=== PATIENT | male | born 1985 | race Caucasian/White ===

== ENCOUNTER 2018-10-25 10:04 | Emergency (ER) | payer OTHER ==
[2018-10-25] MEDS ORDERED: DIAZEPAM 5 MG TABLET ONE (10:45)
[2018-10-25] MEDS ORDERED: FENTANYL CITR 100 MCG/2 ML ONE (14:09)
[2018-10-25] MEDS ORDERED: HYDROCODONE/APAP 10/325 TAB ONE (16:09)
--- NOTE | 2018-10-25 16:13 | RAD REPORT ---
EXAM DESCRIPTION: MRI - Lumbar Spine Wo Con - 10/25/2018 3:32 pm CLINICAL HISTORY: Ataxia and numbness COMPARISON: 2016 x-ray TECHNIQUE: Sagittal T1, T2 and STIR weighted sequences were obtained. Axial T1 and T2 sequences were obtained through the lumbar disc levels. FINDINGS: L1-2 and L2-3 are unremarkable Disc desiccation L3-4. Small disc bulge. Annular fissure. Thecal sac measures 9 millimeters. Neural f oramina patent Disc desiccation and bulge L4-5 with annular fissure. Mild ligamentum flavum and facet hypertrophy. T hecal sac measures 9 millimeters. Mild narrowing of the neural foramina bilaterally 10 x 7 x 13 millimeter (cc by AP by trans) left paracentral disc herniation L5-S1 abuts the right S1 nerve root No significant abnormal signal within the bones IMPRESSION: Moderate right paracentral disc herniation L5-S1 Spondylosis L3-4 and L4-5 resulting in mild central spinal stenosis
--- NOTE | 2018-10-25 17:21 | EDPHYS ---
Physician Documentation [facility] Name: Pj Avila Age: 32 yrs Sex: Male : 1985 Arrival Date: 10/25/2018 Time: 10:07 Bed 14 Private MD: None, None ED Physician Cirilo Michel HPI: 10/25 15:52 This 32 yrs old Male presents to ER via Ambulatory with complaints of Back snw Pain. 15:52 The patient presents with pain that is acute, and decreased range of motion, and spasm. 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 - Social history:: Smoking status: Patient/guardian denies using tobacco. - Ebola Screening: : Patient negative for fever greater than or equal to 101.5 degrees Fahrenheit, and additional compatible Ebola Virus Disease symptoms Patient denies exposure to infectious person Patient denies travel to an Ebola-affected area in the 21 days before illness onset No symptoms or risks identified at this time. ROS: 10:32 Constitutional: Negative for fever, chills, and weight loss, Eyes: Negative for injury, snw pain, redness, and discharge, ENT: Negative for injury, pain, and discharge, Neck: Negative for injury, pain, and swelling, Cardiovascular: Negative for chest pain, palpitations, and edema, Respiratory: Negative for shortness of breath, cough, wheezing, and pleuritic chest pain, Abdomen/GI: Negative for abdominal pain, nausea, vomiting, diarrhea, and constipation, Back: Negative for injury, + severe pain. Exam: 10:22 Constitutional: This is a well developed, well nourished patient who is awake, alert, snw and in no acute distress. Head/Face: Normocephalic, atraumatic. Eyes: Pupils equal round and reactive to light, extra-ocular motions intact. Lids and lashes normal. Conjunctiva and sclera are non-icteric and not injected. Cornea within normal limits. Periorbital areas with no swelling, redness, or edema. ENT: Nares patent. No nasal discharge, no septal abnormalities noted. Tympanic membranes are normal and external auditory canals are clear. Oropharynx with no redness, swelling, or masses, exudates, or evidence of obstruction, uvula midline. Mucous membranes moist. Neck: Trachea midline, no thyromegaly or masses palpated, and no cervical lymphadenopathy. Supple, full range of motion without nuchal rigidity, or vertebral point tenderness. No Meningismus. Chest/axilla: Normal chest wall appearance and motion. Nontender with no deformity. No lesions are appreciated. Cardiovascular: Regular rate and rhythm with a normal S1 and S2. No gallops, murmurs, or rubs. Normal PMI, no JVD. No pulse deficits. Respiratory: Lungs have equal breath sounds bilaterally, clear to auscultation and percussion. No rales, rhonchi or wheezes noted. No increased work of breathing, no retractions or nasal flaring. Abdomen/GI: Soft, non-tender, with normal bowel sounds. No distension or tympany. No guarding or rebound. No evidence of tenderness throughout. Skin: Warm, dry with normal turgor. Normal color with no rashes, no lesions, and no evidence of cellulitis. Neuro: Awake and alert, GCS 15, oriented to person, place, time, and situation. Cranial nerves II-XII grossly intact. Motor strength 5/5 in all extremities. Sensory grossly intact. Cerebellar exam normal. Normal gait. Psych: Awake, alert, with orientation to person, place and time. Behavior, mood, and affect are within normal limits. 10:22 Back: pain, that is moderate, that is severe, ROM is painful, with all movement, decreased, normal spinal alignment noted, CVA tenderness, is absent, muscle spasm, is appreciated in the low back area, radiation to bilateral lower extremities. Vital Signs: 10:15 Pulse 96; Resp 17; Temp 97.8; Pulse Ox 100% on R/A; Weight 102.06 kg; Height 6 ft. 0 sg in. (182.88 cm); Pain 7/10; 10:15 BP 138 / 89; sg 11:54 BP 124 / 67; Pulse 70; Resp 17; Pulse Ox 98% on R/A; sg 10:15 Body Mass Index 30.52 (102.06 kg, 182.88 cm) sg MDM: 10:22 Patient medically screened. snw 13:57 Data reviewed: vital signs, nurses notes. Data interpreted: Pulse oximetry: on room air snw is 98 %. Interpretation: normal. Counseling: I had a detailed discussion with the patient and/or guardian regarding: the historical points, exam findings, and any diagnostic results supporting the discharge/admit diagnosis, radiology results. Awaiting: MRI/results. 10/25 10:22 Order name: MRI Lumbar Spine wo Con; Complete Time: 16:45 snw Administered Medications: 10:34 Drug: Valium 10 mg Route: PO; sg 11:50 Follow up: Response: No adverse reaction; No adverse reaction, feeling better sg 14:00 Drug: fentaNYL (PF) 50 mcg Route: IM; Site: left deltoid; sg 15:56 Drug: Jeffrey 10 mg-325 mg 1 tabs Route: PO; sg 17:23 Drug: Decadron 10 mg Route: IM; Site: left ventrogluteal; sg Disposition: 10/26 07:32 Co-signature as Attending Physician, Cirilo Michel MD I agree with the assessment and kdr plan of care. Disposition: 10/25/18 17:19 Discharged to Home. Impression: Lumbago with sciatica, unspecified side, Intervertebral disc disorders with radiculopathy, lumbosacral region. - Condition is Stable. - Discharge Instructions: Herniated Disk, Lumbosacral Radiculopathy, Sciatica, Radicular Pain. - Prescriptions for Tylenol- Codeine #3 300-30 mg Oral Tablet - take 2 tablets by ORAL route every 6 hours As needed; 20 tablet. Soma 350 mg Oral Tablet - take 1 tablet by ORAL route every 6 hours As needed; 12 tablet. - Medication Reconciliation Form, Thank You Letter, Antibiotic Education, Prescription Opioid Use form. - Follow up: Private Physician; When: 1 - 2 days; Reason: Recheck today's complaints, Continuance of care, Re-evaluation by your physician. Follow up: Emergency Department; When: As needed; Reason: Worsening of condition. Follow up: Jean-Pierre Reynaga MD; When: 1 - 2 days; Reason: Recheck today's complaints, Continuance of care. Signatures: Dispatcher [employer] EDFreddy Nolasco RN Cirilo Harman MD MD kdr Therrien, Shelly, WATER POLLUTION CONTROL INSPECTOR-C WATER POLLUTION CONTROL INSPECTOR-Csnw Corrections: (The following items were deleted from the chart) 10/25 17:46 17:19 10/25/2018 17:19 Discharged to Home. Impression: Lumbago with sciatica, sg unspecified side; Intervertebral disc disorders with radiculopathy, lumbosacral region. Condition is Stable. Forms are Medication Reconciliation Form, Thank You Letter, Antibiotic Education, Prescription Opioid Use. Follow up: Private Physician; When: 1 - 2 days; Reason: Recheck today's complaints, Continuance of care, Re-evaluation by your physician. Follow up: Emergency Department; When: As needed; Reason: Worsening of condition. Follow up: Jean-Pierre Reynaga; When: 1 - 2 days; Reason: Recheck today's complaints, Continuance of care. snw
--- NOTE | 2018-10-25 17:21 | ER ---
Nurse's Notes [facility] Name: Pj Avila Age: 32 yrs Sex: Male : 1985 Arrival Date: 10/25/2018 Time: 10:07 Bed 14 Private MD: None, None Diagnosis: Lumbago with sciatica, unspecified side;Intervertebral disc disorders with radiculopathy, lumbosacral region Presentation: 10/25 10:16 Presenting complaint: Patient states: Lexi been on my boat the last 3-4 days, reports sg being seen by the PCP and given a muscle relaxer, took one dose last night, no relief just made me sleepy. Transition of care: patient was not received from another setting of care. Onset of symptoms was October 25, 2018. Risk Assessment: Do you want to hurt yourself or someone else? Patient reports no desire to harm self or others. Initial Sepsis Screen: Does the patient meet any 2 criteria? No. Patient's initial sepsis screen is negative. Does the patient have a suspected source of infection? No. Patient's initial sepsis screen is negative. Care prior to arrival: None. 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 - Social history:: Smoking status: Patient/guardian denies using tobacco. - Ebola Screening: : Patient negative for fever greater than or equal to 101.5 degrees Fahrenheit, and additional compatible Ebola Virus Disease symptoms Patient denies exposure to infectious person Patient denies travel to an Ebola-affected area in the 21 days before illness onset No symptoms or risks identified at this time. Screenin:18 Abuse screen: Denies threats or abuse. Denies injuries from another. Nutritional sg screening: No deficits noted. Tuberculosis screening: No symptoms or risk factors identified. Never had TB. Fall Risk None identified. Assessment: 10:18 General: Appears in no apparent distress. well groomed, well developed, well nourished, sg Behavior is calm, cooperative, appropriate for age. Pain: Complains of pain in low back area Quality of pain is described as aching. Neuro: Level of Consciousness is awake, alert, obeys commands, Oriented to person, place, time, situation, Patent Clerk are equal bilaterally Moves all extremities. Full function Gait is unsteady, reports has to walk in a crouching and hunched over position for comfort. Speech is normal, Facial symmetry appears normal. Cardiovascular: Capillary refill is brisk in bilateral fingers Patient's skin is warm and dry. Chest pain is denied. Respiratory: Airway is patent Respiratory effort is even, unlabored, Respiratory pattern is regular, symmetrical. GI: Abdomen is round non-distended. : No signs and/or symptoms were reported regarding the genitourinary system. EENT: No signs and/or symptoms were reported regarding the EENT system. Derm: Skin is pink, warm \T\ dry. Musculoskeletal: Circulation, motion, and sensation intact. Range of motion: intact in all extremities, Reports pain in low back area. Vital Signs: 10:15 Pulse 96; Resp 17; Temp 97.8; Pulse Ox 100% on R/A; Weight 102.06 kg; Height 6 ft. 0 sg in. (182.88 cm); Pain 7/10; 10:15 BP 138 / 89; sg 11:54 BP 124 / 67; Pulse 70; Resp 17; Pulse Ox 98% on R/A; sg 10:15 Body Mass Index 30.52 (102.06 kg, 182.88 cm) sg ED Course: 10:07 Patient arrived in ED. dp 10:08 None, None is Private Physician. dp 10:15 [facility] Morat[facility]-C [facility] snw 10:15 Cirilo Michel MD is Attending Physician. snw 10:15 Freddy Taylor, ERNESTO is Primary Nurse. sg 10:15 Arm band placed on. sg 10:17 Triage completed. sg 10:18 No provider procedures requiring assistance completed. sg 11:53 Awaiting: MRI. sg 14:44 Patient moved to MRI via wheelchair. sg 15:15 MRI completed. Patient tolerated well. Patient moved back from MRI. em2 16:01 MRI Lumbar Spine wo Con In Process Unspecified. EDMS 17:18 Jean-Pierre Reynaga MD is Referral Physician. snw Administered Medications: 10:34 Drug: Valium 10 mg Route: PO; sg 11:50 Follow up: Response: No adverse reaction; No adverse reaction, feeling better sg 14:00 Drug: fentaNYL (PF) 50 mcg Route: IM; Site: left deltoid; sg 15:56 Drug: Columbus 10 mg-325 mg 1 tabs Route: PO; sg 17:23 Drug: Decadron 10 mg Route: IM; Site: left ventrogluteal; sg Outcome: 17:19 Discharge ordered by . snw 17:46 Patient left the ED. sg Signatures: Dispatcher [employer] EDMS Freddy Taylor RN RN sg Judy Morataya, SOCIAL SCIENCE MANAGER-C SOCIAL SCIENCE MANAGER-Csnw Allen Lima 2 Mo Resendez
[2018-10-25] MEDS ORDERED: dexAMETHasone 10 MG/ML VIAL ONE (17:35)
== END 2018-10-25 17:46 | disposition home or self-care (01) ==
LOC: ER 10:04
DX: M51.17 Intervertebral disc disorders with radiculopathy, lumbosacral region (principal)
CPT/HCPCS: 72148; 96372; 99284; J1100; J3010

== ENCOUNTER 2019-05-19 08:53 | Emergency (ER) | payer OTHER ==
[2019-05-19] MEDS ORDERED: DIAZEPAM 5 MG TABLET ONE (09:13)
[2019-05-19] MEDS ORDERED: MORPHINE 4 MG/ML SYR ONE (09:13)
[2019-05-19] MEDS ORDERED: dexAMETHasone 10 MG/ML VIAL ONE (09:13)
[2019-05-19] MEDS ORDERED: ONDANSETRON 4 MG/2 ML VIAL ONE (09:14)
[2019-05-19] MEDS ORDERED: KETOROLAC 30 MG/ML INJ ONE (09:14)
[2019-05-19] MEDS ORDERED: NA CHLORIDE 0.9% 1,000 ML ONE (09:14)
[2019-05-19 09:38] LABS: Absolute Lymphocytes (CBC) 1.8 K/uL (0.7-4.9); Basophils % 0.3 % (0-1.3); Hematocrit 50.7 % (39.6-49.0); Lymphocytes % 20.9 % (15.3-44.8); MPV 7.8 fL (7.6-11.3)
[2019-05-19 09:53] LABS: Albumin 4.3 g/dL (3.4-5.0); Bilirubin Total 0.7 mg/dL (0.2-1.0); Potassium 4.1 mmol/L (3.5-5.1); Protein, Total 8.1 g/dL (6.4-8.2)
--- NOTE | 2019-05-19 10:06 | EDPHYS ---
Physician Documentation [facility] Name: Pj Avila Age: 33 yrs Sex: Male : 1985 Arrival Date: 05/19/2019 Time: 08:55 Bed 17 Private MD: CHUY Physician Baldo Jacobsen HPI: 05/19 09:07 This 33 yrs old Male presents to ER via Ambulatory with complaints of Back olesya Pain. 09:07 The patient presents with pain that is acute. The symptoms are located in the low back, olesya lumbar area, left low back and right low back. Onset: The symptoms/episode began/occurred 2 day(s) ago. The pain radiates. Associated signs and symptoms: The patient has no apparent associated signs or symptoms. Severity of symptoms: At their worst the symptoms were. Historical: - Allergies: 09:07 No Known Allergies; aa5 - PMHx: 09:07 Genetic heart condition (modified AV canal in 1988); aa5 - PSHx: 09:07 Open heart surgery; Pyloric stenosis surgery; Shoulder surgery; aa5 - Immunization history:: Adult Immunizations up to date. - Coronavirus screen:: The patient has NOT traveled to [place], [place], or [place] in the past 14 days. Proceed with normal triage process as indicated. The patient has NOT had contact with known/suspected case of Coronavirus? Proceed with normal triage procedures. - Family history:: not pertinent. - Social history:: Smoking status: Patient denies any tobacco usage or history of. - Ebola Screening: : No symptoms or risks identified at this time. ROS: 09:07 Constitutional: Negative for fever, chills, and weight loss, Eyes: Negative for injury, olesya pain, redness, and discharge, ENT: Negative for injury, pain, and discharge, Neck: Negative for injury, pain, and swelling, Cardiovascular: Negative for chest pain, palpitations, and edema, Respiratory: Negative for shortness of breath, cough, wheezing, and pleuritic chest pain, Abdomen/GI: Negative for abdominal pain, nausea, vomiting, diarrhea, and constipation, : Negative for injury, bleeding, discharge, and swelling, MS/Extremity: Negative for injury and deformity, Skin: Negative for injury, rash, and discoloration, Neuro: Negative for headache, weakness, numbness, tingling, and seizure, Psych: Negative for depression, anxiety, suicide ideation, homicidal ideation, and hallucinations, Allergy/Immunology: Negative for hives, rash, and allergies, Endocrine: Negative for neck swelling, polydipsia, polyuria, polyphagia, and marked weight changes, Hematologic/Lymphatic: Negative for swollen nodes, abnormal bleeding, and unusual bruising. 09:07 Back: Positive for pain at rest, pain with movement. Exam: :07 Constitutional: This is a well developed, well nourished patient who is awake, alert, olesya and in no acute distress. Head/Face: Normocephalic, atraumatic. Eyes: Pupils equal round and reactive to light, extra-ocular motions intact. Lids and lashes normal. Conjunctiva and sclera are non-icteric and not injected. Cornea within normal limits. Periorbital areas with no swelling, redness, or edema. ENT: Nares patent. No nasal discharge, no septal abnormalities noted. Tympanic membranes are normal and external auditory canals are clear. Oropharynx with no redness, swelling, or masses, exudates, or evidence of obstruction, uvula midline. Mucous membranes moist. Neck: Trachea midline, no thyromegaly or masses palpated, and no cervical lymphadenopathy. Supple, full range of motion without nuchal rigidity, or vertebral point tenderness. No Meningismus. Chest/axilla: Normal chest wall appearance and motion. Nontender with no deformity. No lesions are appreciated. Cardiovascular: Regular rate and rhythm with a normal S1 and S2. No gallops, murmurs, or rubs. Normal PMI, no JVD. No pulse deficits. Respiratory: Lungs have equal breath sounds bilaterally, clear to auscultation and percussion. No rales, rhonchi or wheezes noted. No increased work of breathing, no retractions or nasal flaring. Abdomen/GI: Soft, non-tender, with normal bowel sounds. No distension or tympany. No guarding or rebound. No evidence of tenderness throughout. Male : Normal genitalia with no discharge or lesions. Skin: Warm, dry with normal turgor. Normal color with no rashes, no lesions, and no evidence of cellulitis. MS/ Extremity: Pulses equal, no cyanosis. Neurovascular intact. Full, normal range of motion. Neuro: Awake and alert, GCS 15, oriented to person, place, time, and situation. Cranial nerves II-XII grossly intact. Motor strength 5/5 in all extremities. Sensory grossly intact. Cerebellar exam normal. Normal gait. Psych: Awake, alert, with orientation to person, place and time. Behavior, mood, and affect are within normal limits. 09:07 Back: pain, that is moderate, ROM is painful, normal spinal alignment noted, CVA tenderness, is absent, muscle spasm, is appreciated in the left low back, left mid back, right mid back and right low back. Vital Signs: 09:07 BP 140 / 101; Pulse 112; Resp 18 S; Temp 98.1(O); Pulse Ox 100% on R/A; aa5 MDM: 08:58 Patient medically screened. [facility] 09:09 Data reviewed: vital signs, nurses notes, lab test result(s), radiologic studies. [facility] 05/19 09:06 Order name: CBC with Diff; Complete Time: 10:04 [facility] 05/19 09:06 Order name: Comprehensive Metabolic Panel; Complete Time: 10:04 [facility] 05/19 09:54 Order name: Urine Dipstick--Ancillary (enter results) 05/19 09:06 Order name: Urine Dipstick-Ancillary (obtain specimen); Complete Time: 10:05 [facility] Administered Medications: 09:25 Drug: NS 0.9% 1000 ml Route: IV; Rate: 1 bolus; Site: left antecubital; sv 10:41 Follow up: Response: No adverse reaction; IV Status: Completed infusion; IV Intake: sv 1000ml 09:25 Drug: Valium 5 mg Route: PO; sv 10:40 Follow up: Response: No adverse reaction sv 09:25 Drug: Zofran 4 mg Route: IVP; Site: left antecubital; sv 10:39 Follow up: Response: No adverse reaction sv 09:27 Drug: morphine 4 mg Route: IVP; Site: left antecubital; sv 10:40 Follow up: Response: No adverse reaction; Pain is decreased; RASS: Alert and Calm (0) sv 09:29 Drug: Decadron - Dexamethasone 10 mg Route: IVP; Site: left antecubital; sv 10:40 Follow up: Response: No adverse reaction sv 09:31 Drug: TORadol 30 mg Route: IVP; Site: left antecubital; sv 10:40 Follow up: Response: No adverse reaction sv Disposition: 02/01/20 10:04 Discharged to Home. Impression: Sciatica, left side, Sciatica, right side, Low back pain, Spondylolysis, lumbar region, Radiculopathy, lumbar region. - Condition is Stable. - Discharge Instructions: Back Pain, Adult, Lumbosacral Radiculopathy, Musculoskeletal Pain, Sciatica, Back Injury Prevention, [id number], Back Pain, Adult, [id number]. - Prescriptions for dexamethasone 2 mg Oral tablet - take 2 tablet by ORAL route 2 times per day; 12 tablet. Ibuprofen 600 mg Oral Tablet - take 1 tablet by ORAL route every 6 hours As needed take with food; 30 tablet. Tylenol- Codeine #3 300-30 mg Oral Tablet - take 2 tablet by ORAL route every 6 hours As needed; 30 tablet. Valium 5 mg Oral Tablet - take 1 tablet by ORAL route every 8 hours As needed; 20 tablet. - Work release form, Medication Reconciliation Form, Thank You Letter, Antibiotic Education, Prescription Opioid Use form. - Follow up: Private Physician; When: 2 - 3 days; Reason: Recheck today's complaints, Continuance of care, Re-evaluation by your physician. - Problem is new. - Symptoms have improved. Signatures: Dispatcher [employer] Socorro Marlow RN RN Baldo Mike MD MD cha Calderon, Audri RN RN aa5 Corrections: (The following items were deleted from the chart) 10:42 10:04 05/19/2019 10:04 Discharged to Home. Impression: Sciatica, left side; Sciatica, sv right side; Low back pain; Spondylolysis, lumbar region; Radiculopathy, lumbar region. Condition is Stable. Discharge Instructions: Back Pain, Adult, Lumbosacral Radiculopathy, Musculoskeletal Pain, Sciatica, Back Injury Prevention, [id number], Back Pain, Adult, [id number]. Prescriptions for dexamethasone 2 mg Oral tablet - take 2 tablet by ORAL route 2 times per day; 12 tablet, Ibuprofen 600 mg Oral Tablet - take 1 tablet by ORAL route every 6 hours As needed take with food; 30 tablet, Tylenol-Codeine #3 300-30 mg Oral Tablet - take 2 tablet by ORAL route every 6 hours As needed; 30 tablet, Valium 5 mg Oral Tablet - take 1 tablet by ORAL route every 8 hours As needed; 20 tablet. and Forms are Medication Reconciliation Form, Thank You Letter, Antibiotic Education, Prescription Opioid Use. Follow up: Private Physician; When: 2 - 3 days; Reason: Recheck today's complaints, Continuance of care, Re-evaluation by your physician. Problem is new. Symptoms have improved. olesya
--- NOTE | 2019-05-19 10:06 | ER ---
Nurse's Notes [facility] Name: Pj Avila Age: 33 yrs Sex: Male : 1985 Arrival Date: 05/19/2019 Time: 08:55 Bed 17 Private MD: Diagnosis: Sciatica, left side;Sciatica, right side;Low back pain;Spondylolysis, lumbar region;Radiculopathy, lumbar region Presentation: 05/19 08:57 Presenting complaint: Patient states: low back pain x 5 days ago radiating to left leg. aa5 Pt reports he is taking Prednisone and Meloxicam he had left over from a shoulder injury last week and he's been taking them for 4 days without relief. 08:57 Transition of care: patient was not received from another setting of care. Onset of aa5 symptoms was April 2019. Risk Assessment: Do you want to hurt yourself or someone else? Patient reports no desire to harm self or others. Initial Sepsis Screen: Does the patient meet any 2 criteria? No. Patient's initial sepsis screen is negative. Does the patient have a suspected source of infection? No. Patient's initial sepsis screen is negative. Care prior to arrival: None. 08:57 Acuity: STEVE 3 aa5 08:57 Method Of Arrival: Ambulatory aa5 Historical: - Allergies: 09:07 No Known Allergies; aa5 - PMHx: 09:07 Genetic heart condition (modified AV canal in 1988); aa5 - PSHx: 09:07 Open heart surgery; Pyloric stenosis surgery; Shoulder surgery; aa5 - Immunization history:: Adult Immunizations up to date. - Coronavirus screen:: The patient has NOT traveled to [place], [place], or [place] in the past 14 days. Proceed with normal triage process as indicated. The patient has NOT had contact with known/suspected case of Coronavirus? Proceed with normal triage procedures. - Family history:: not pertinent. - Social history:: Smoking status: Patient denies any tobacco usage or history of. - Ebola Screening: : No symptoms or risks identified at this time. Screenin:41 Abuse screen: Denies threats or abuse. Denies injuries from another. Nutritional sv screening: No deficits noted. Tuberculosis screening: No symptoms or risk factors identified. Fall Risk None identified. Assessment: 10:41 Reassessment: Patient appears in no apparent distress at this time. Patient and/or sv family updated on plan of care and expected duration. Pain level reassessed. Patient is alert, oriented x 3, equal unlabored respirations, skin warm/dry/pink. Patient states symptoms have improved. Vital Signs: 09:07 BP 140 / 101; Pulse 112; Resp 18 S; Temp 98.1(O); Pulse Ox 100% on R/A; aa5 ED Course: 08:55 Patient arrived in ED. mr 08:57 Arm band placed on. aa5 08:58 Baldo Jacobsen MD is Attending Physician. [facility] 09:06 Triage completed. aa5 09:07 Socorro Calderón, ERNESTO is Primary Nurse. ah 09:25 Inserted saline lock: 20 gauge in left antecubital area, using aseptic technique. Blood sv collected. Flushed left antecubital with 2 ml normal saline. 10:41 Patient has correct armband on for positive identification. Call light in reach. sv 10:41 No provider procedures requiring assistance completed. IV discontinued, intact, sv bleeding controlled, No redness/swelling at site. Pressure dressing applied. Administered Medications: 09:25 Drug: NS 0.9% 1000 ml Route: IV; Rate: 1 bolus; Site: left antecubital; sv 10:41 Follow up: Response: No adverse reaction; IV Status: Completed infusion; IV Intake: sv 1000ml 09:25 Drug: Valium 5 mg Route: PO; sv 10:40 Follow up: Response: No adverse reaction sv 09:25 Drug: Zofran 4 mg Route: IVP; Site: left antecubital; sv 10:39 Follow up: Response: No adverse reaction sv 09:27 Drug: morphine 4 mg Route: IVP; Site: left antecubital; sv 10:40 Follow up: Response: No adverse reaction; Pain is decreased; RASS: Alert and Calm (0) sv 09:29 Drug: Decadron - Dexamethasone 10 mg Route: IVP; Site: left antecubital; sv 10:40 Follow up: Response: No adverse reaction sv 09:31 Drug: TORadol 30 mg Route: IVP; Site: left antecubital; sv 10:40 Follow up: Response: No adverse reaction sv Intake: 10:41 IV: 1000ml; Total: 1000ml. sv Outcome: 10:04 Discharge ordered by . olesya 10:42 Discharged to home ambulatory, with family, with his walker 10:42 Condition: stable 10:42 Discharge instructions given to patient, Instructed on discharge instructions, follow up and referral plans. medication usage, Demonstrated understanding of instructions, follow-up care, medications, Prescriptions given X 4. 10:42 Patient left the ED. sv Signatures: Socorro Calderón RN RN Baldo Mike MD MD cha Rivera, Edna mr Ana Travis, RN RN aa5 Michaela Guadalupe, RN RN
[2019-05-19 10:50] VITALS: BP 140/101; TEMP 98.1; O2SAT 100
[2019-05-19 11:24] LABS: Urine Blood NEGATIVE (NEG); Urine Glucose NEGATIVE (NEG); Urine Protein NEGATIVE (NEG); Urine Specific Gravity 1.005 (1.005-1.030)
== END 2019-05-19 10:42 | disposition home or self-care (01) ==
LOC: ER 08:53
DX: M54.32 Sciatica, left side (principal); M54.31 Sciatica, right side; M43.06 Spondylolysis, lumbar region; M54.16 Radiculopathy, lumbar region
CPT/HCPCS: 96361; 85025; 36415; 81003; 80053; 96375; 96374; 99284; J1100; J7030; J2405